=== PATIENT | male | born 1955 | race Caucasian/White ===

== ENCOUNTER → 2024-01-22 12:38 | Outpatient (REF) | payer MEDICARE, OTHER, SELFPAY ==
[2024-01-22 13:26] LABS: % Basophils 0.7 % (0-2); % Eosinophils 1.2 % (0-6); % Immature Granulocytes 0.3 % (0-0.5); % Lymphocytes 24.2 % (20.5-51.1); % Monocytes 9.9 % (1.7-9.3); % Neutrophils 63.7 % (42.2-75.2); Absolute Basophils 0.1 10^3/uL (0-0.2); Absolute Eosinophils 0.1 10^3/uL (0-0.7); Absolute Lymphocytes 1.8 10^3/uL (1.2-3.4); Absolute Monocytes 0.8 10^3/uL (0.1-0.6); Absolute Neutrophils 4.8 10^3/uL (1.4-6.5); Hematocrit 37.3 % (39.0-52.0); Hemoglobin 12.9 g/dL (13.0-18.0); Mean Corp Hgb Conc. 34.6 g/dL (33.0-37.0); Mean Corpuscular Hgb 29.9 pg (27.0-31.0); Mean Corpuscular Volume 86.5 fL (80.0-94.0); Mean Platelet Volume 10.9 fL (7.4-10.4); Nucleated Red Blood Cells % 0 % (-); Platelet Count 190 10^3/uL (130-400); Red Blood Cell Count 4.31 10^6/uL (4.70-6.10); Red Cell Dist. Width 12.3 % (11.5-14.5); White Blood Cell Count 7.6 10^3/uL (4.8-10.8)
[2024-01-22 14:09] LABS: ALT (SGPT) 24 U/L (0-50); AST (SGOT) 33 U/L (17-59); Albumin 4.7 g/dl (3.5-5.0); Alkaline Phosphatase 64 U/L (38-126); Blood Urea Nitrogen 17 mg/dl (9-20); Calcium 9.6 mg/dl (8.4-10.2); Carbon Dioxide 26 mmol/L (22-30); Chloride 101 mmol/L (98-107); Glucose 116 mg/dl (70-99); HDL Cholesterol 46 mg/dl; LDL Cholesterol, Calculated 42 mg/dl; Potassium 4.8 mmol/L (3.5-5.1); Sodium 133 mmol/L (135-145); Total Bilirubin 0.4 mg/dl (0.2-1.3); Total Cholesterol 111 mg/dl (50-199); Total Protein 7.6 g/dl (6.3-8.2); Triglyceride 118 mg/dl (10-149); Very Low Density Lipoprotein 23 mg/dl (0-30); eGFR > 60.00
[2024-01-23 09:23] LABS: Glycohemoglobin (HgbA1c) 6.9 % (4.0-5.6)
== END ==
LOC: REG 12:38
PROVIDERS: ATTENDING PHYSICIAN Internal Medicine
DX: E11.9 Type 2 diabetes mellitus without complications (principal); E78.5 Hyperlipidemia, unspecified; I10 Essential (primary) hypertension; Z79.01 Long term (current) use of anticoagulants; Z00.00 Encounter for general adult medical examination without abnormal findings
CPT/HCPCS: 36415; 80053; 80061; 83036; 85025

== ENCOUNTER → 2024-04-10 12:34 | Outpatient (REF) | payer MEDICARE, OTHER, SELFPAY ==
[2024-04-10 13:18] LABS: % Basophils 0.6 % (0-2); % Eosinophils 1.7 % (0-6); % Immature Granulocytes 0.1 % (0-0.5); % Lymphocytes 18.1 % (20.5-51.1); % Neutrophils 73.5 % (42.2-75.2); Absolute Basophils 0.1 10^3/uL (0-0.2); Absolute Eosinophils 0.1 10^3/uL (0-0.7); Absolute Lymphocytes 1.5 10^3/uL (1.2-3.4); Absolute Monocytes 0.5 10^3/uL (0.1-0.6); Absolute Neutrophils 6.2 10^3/uL (1.4-6.5); Hematocrit 38.7 % (39.0-52.0); Hemoglobin 13.2 g/dL (13.0-18.0); Mean Corp Hgb Conc. 34.1 g/dL (33.0-37.0); Mean Corpuscular Hgb 29.9 pg (27.0-31.0); Mean Corpuscular Volume 87.6 fL (80.0-94.0); Mean Platelet Volume 10.9 fL (7.4-10.4); Nucleated Red Blood Cells % 0 % (-); Platelet Count 220 10^3/uL (130-400); Red Blood Cell Count 4.42 10^6/uL (4.70-6.10); Red Cell Dist. Width 12.6 % (11.5-14.5); White Blood Cell Count 8.5 10^3/uL (4.8-10.8)
[2024-04-10 14:33] LABS: PSA, Total - Screen 0.88 ng/ml (0.0-4.0)
== END ==
LOC: REG 12:34
PROVIDERS: ATTENDING PHYSICIAN Internal Medicine; OTHER PHYSICIAN Internal Medicine Cardiovascular Disease
DX: Z12.5 Encounter for screening for malignant neoplasm of prostate (principal); D64.9 Anemia, unspecified
CPT/HCPCS: 36415; 85025; G0103

== ENCOUNTER → 2024-04-22 13:50 | Outpatient (REF) | payer MEDICARE, OTHER, SELFPAY | LOC: HWRCS 13:50 | PROVIDERS: ATTENDING PHYSICIAN Internal Medicine Cardiovascular Disease; FAMILY PHYSICIAN Internal Medicine | DX: I48.0 Paroxysmal atrial fibrillation (principal); I50.20 Unspecified systolic (congestive) heart failure | CPT/HCPCS: 93306 ==

== ENCOUNTER → 2024-05-25 12:41 | Outpatient (REF) | payer MEDICARE, OTHER, SELFPAY ==
[2024-05-25 14:18] LABS: Glycohemoglobin (HgbA1c) 6.8 % (4.0-5.6)
[2024-05-25 15:25] LABS: ALT (SGPT) 24 U/L (0-50); AST (SGOT) 34 U/L (17-59); Albumin 4.6 g/dl (3.5-5.0); Alkaline Phosphatase 66 U/L (38-126); Direct Bilirubin 0.2 mg/dl (0.0-0.4); Glucose 124 mg/dl (70-99); HDL Cholesterol 50 mg/dl; LDL Cholesterol, Calculated 42 mg/dl; Total Bilirubin 0.6 mg/dl (0.2-1.3); Total Cholesterol 120 mg/dl (50-199); Total Protein 7.2 g/dl (6.3-8.2); Triglyceride 143 mg/dl (10-149); Very Low Density Lipoprotein 28 mg/dl (0-30)
[2024-05-25 15:45] LABS: NT-proBNP 328 pg/ml
== END ==
LOC: REG 12:41
PROVIDERS: ATTENDING PHYSICIAN Internal Medicine Cardiovascular Disease; FAMILY PHYSICIAN Internal Medicine
DX: I25.5 Ischemic cardiomyopathy (principal); I50.20 Unspecified systolic (congestive) heart failure; E11.9 Type 2 diabetes mellitus without complications; I10 Essential (primary) hypertension; E78.5 Hyperlipidemia, unspecified
CPT/HCPCS: 36415; 80061; 80076; 82947; 83036; 83880

== ENCOUNTER 2024-07-29 11:20 | Day surgery (SDC) | payer MEDICARE, OTHER, SELFPAY ==
[2024-07-21 09:34] VITALS: BMI 30.1
[2024-07-29] VITALS (16 sets, daily range): BP systolic 86–158; BP diastolic 57–92
--- NOTE | 2024-07-29 07:48 | W.ICD.CONTRA ---
Post ICD/[employer] CIT[employer]-D
-
History of RI?: Yes
LV Function
Left ventricular function study result?: Ejection Fraction </= 35%
ACEI/ARB/ARNI
Patient already on ACEI/ARB/ARNI: Yes
Beta-William
Patient already on Beta William: Yes
[2024-07-29 12:20] LABS: Glucose - Point of Care 121 mg/dl (70-99)
[2024-07-29 17:50] LABS: Glucose - Point of Care 135 mg/dl (70-99)
--- NOTE | 2024-07-29 17:51 | ITS.CL.ICD ---
Client Support Representative - ICD
Implantable Cardioverter Defibrillator
Procedure Report:
Primary Clinical Cytogeneticist Scientist: Geovanna Bragg M.D.
PROCEDURES:
1. Removal of ICD Generator, 2. ICD Implant
INDICATION FOR PROCEDURE:
1. ICD at [employer]
2. CARDIOMYOPATHY
Initial indication for implant is primary prevention
CHF Class 2-3
Duration of HF > 5 years despite guideline directed medical therapy at maximally tolerated doses
EF 30%
Life expectancy > 1 yr
HISTORY: See office H and P
'Time-out' was called and confirmed. The patient was prepped and draped in sterile fashion. Lidocaine with epi was used for local anesthesia. An incision was made along the previous incision and the device and leads were carefully dissected from
the pocket. Hemostasis was obtained with electrocautery. The leads were from the device header and tested using an external analyzer. The pocket was liberally irrigated with antibiotic solution. Once testing (see below) showed adequate
and stable function, the leads were connected to the generator header and the leads and generator were placed within the pocket. The pocket was closed in the typical fashion.
Tyrex antibiotic pouch was used as he was randomized to this is part of the Wrap-it trial
EXPLANTED ICD: Medtronic [id number], SN [id number]
IMPLANTED ICD: MEDTRONIC [id number], [id number]
EXISTING LEADS:
RA: Medtronic 5076 PJN [id number]
RV: Medtronic 6945 TDA [id number]
RL: Medtronic 4196 PVI [id number]
DEVICE TESTING:
Sensing: RA 2.4 mV, RV 16 mV,
Capture: RA 1 V@ 0.4 ms, RV 1 V@ 0.4 ms, LV 1 V@ 0.4 ms,
Ohms: RA 399 , RV 741 , LV 418
FINAL PROGRAMMING:
Zurdo Pacing: DDDR 50-130 ppm
Tachy parameters:
VF: 188 bpm, ATP while charging, Shock
CONCLUSIONS:
1. Explant of ICD at [employer]
2. Successful implant ICD generator.
3. Normal function of ICD and leads at implant testing.
RECOMMENDATIONS:
1. Observation and consideration for discharge home later today.
2. In-Office wound check in 7 days.
3. In-Office interrogation in 6-8 weeks.
== END 2024-07-29 18:31 | disposition home or self-care (01) ==
LOC: CATH 11:20
PROVIDERS: ATTENDING PHYSICIAN Internal Medicine Cardiovascular Disease; FAMILY PHYSICIAN Internal Medicine; OTHER PHYSICIAN Internal Medicine Cardiovascular Disease
DX: Z45.02 Encounter for adjustment and management of automatic implantable cardiac defibrillator (principal); I25.5 Ischemic cardiomyopathy; I25.2 Old myocardial infarction; E11.9 Type 2 diabetes mellitus without complications; Z79.84 Long term (current) use of oral hypoglycemic drugs; E78.5 Hyperlipidemia, unspecified; I48.0 Paroxysmal atrial fibrillation; I27.20 Pulmonary hypertension, unspecified; Z79.899 Other long term (current) drug therapy; I11.0 Hypertensive heart disease with heart failure; Z79.01 Long term (current) use of anticoagulants; I25.10 Atherosclerotic heart disease of native coronary artery without angina pectoris; E66.9 Obesity, unspecified; Z68.30 Body mass index [BMI] 30.0-30.9, adult; Z79.82 Long term (current) use of aspirin; Z88.2 Allergy status to sulfonamides; Z95.5 Presence of coronary angioplasty implant and graft
CPT/HCPCS: 33264; 82962; C1882

== ENCOUNTER → 2024-09-24 12:08 | Outpatient (REF) | payer MEDICARE, OTHER, SELFPAY ==
[2024-09-24 13:50] LABS: ALT (SGPT) 25 U/L (0-50); AST (SGOT) 35 U/L (17-59); Albumin 4.7 g/dl (3.5-5.0); Alkaline Phosphatase 55 U/L (38-126); Direct Bilirubin 0.1 mg/dl (0.0-0.4); Glucose 119 mg/dl (70-99); HDL Cholesterol 45 mg/dl; LDL Cholesterol, Calculated 42 mg/dl; Total Bilirubin 0.5 mg/dl (0.2-1.3); Total Cholesterol 116 mg/dl (50-199); Total Protein 7.6 g/dl (6.3-8.2); Triglyceride 145 mg/dl (10-149); Very Low Density Lipoprotein 29 mg/dl (0-30)
[2024-09-24 14:34] LABS: Glycohemoglobin (HgbA1c) 6.8 % (4.0-5.6)
== END ==
LOC: REG 12:08
PROVIDERS: ATTENDING PHYSICIAN Internal Medicine
DX: E11.9 Type 2 diabetes mellitus without complications (principal); E78.5 Hyperlipidemia, unspecified; I10 Essential (primary) hypertension
CPT/HCPCS: 36415; 80061; 80076; 82947; 83036

== ENCOUNTER → 2025-01-28 12:53 | Outpatient (REF) | payer MEDICARE, OTHER, SELFPAY ==
[2025-01-28 13:54] LABS: % Basophils 0.9 % (0-2); % Eosinophils 0.9 % (0-6); % Immature Granulocytes 0.2 % (0-0.5); % Lymphocytes 18.7 % (20.5-51.1); % Neutrophils 72.3 % (42.2-75.2); Absolute Basophils 0.1 10^3/uL (0-0.2); Absolute Eosinophils 0.1 10^3/uL (0-0.7); Absolute Lymphocytes 1.7 10^3/uL (1.2-3.4); Absolute Monocytes 0.7 10^3/uL (0.1-0.6); Absolute Neutrophils 6.7 10^3/uL (1.4-6.5); Hematocrit 38.4 % (39.0-52.0); Hemoglobin 12.8 g/dL (13.0-18.0); Mean Corp Hgb Conc. 33.3 g/dL (33.0-37.0); Mean Corpuscular Hgb 28.9 pg (27.0-31.0); Mean Corpuscular Volume 86.7 fL (80.0-94.0); Mean Platelet Volume 10.9 fL (7.4-10.4); Nucleated Red Blood Cells % 0 % (-); Platelet Count 240 10^3/uL (130-400); Red Blood Cell Count 4.43 10^6/uL (4.70-6.10); Red Cell Dist. Width 12.5 % (11.5-14.5); White Blood Cell Count 9.3 10^3/uL (4.8-10.8)
[2025-01-28 14:11] LABS: ALT (SGPT) 25 U/L (0-50); AST (SGOT) 33 U/L (17-59); Albumin 4.9 g/dl (3.5-5.0); Alkaline Phosphatase 73 U/L (38-126); Blood Urea Nitrogen 15 mg/dl (9-20); Calcium 9.8 mg/dl (8.4-10.2); Carbon Dioxide 26 mmol/L (22-30); Chloride 101 mmol/L (98-107); Glucose 132 mg/dl (70-99); HDL Cholesterol 35 mg/dl; LDL Cholesterol, Calculated 33 mg/dl; Potassium 4.7 mmol/L (3.5-5.1); Sodium 138 mmol/L (135-145); Total Bilirubin 0.7 mg/dl (0.2-1.3); Total Cholesterol 104 mg/dl (50-199); Total Protein 7.8 g/dl (6.3-8.2); Triglyceride 180 mg/dl (10-149); Very Low Density Lipoprotein 36 mg/dl (0-30); eGFR > 60.00
[2025-01-28 14:39] LABS: PSA, Total - Screen 0.94 ng/ml (0.0-4.0)
[2025-01-29 12:34] LABS: Iron 98 ug/dl (49-181)
[2025-01-29 12:43] LABS: Percent Saturation 29 % (20-50); Total Iron Binding Capacity 336 ug/dl (261-462)
== END ==
LOC: REG 12:53
PROVIDERS: ATTENDING PHYSICIAN Internal Medicine; OTHER PHYSICIAN Internal Medicine Cardiovascular Disease
DX: E11.9 Type 2 diabetes mellitus without complications (principal); Z00.01 Encounter for general adult medical examination with abnormal findings; E78.5 Hyperlipidemia, unspecified; Z12.5 Encounter for screening for malignant neoplasm of prostate; D64.9 Anemia, unspecified
CPT/HCPCS: 36415; 80053; 80061; 83036; 83540; 83550; 85025; G0103

== ENCOUNTER → 2025-03-16 12:42 | Outpatient (REF) | payer MEDICARE, OTHER, SELFPAY ==
[2025-03-19 09:18] LABS: Lipoprotein a (Lp a) 13 mg/dL (<=29)
== END ==
LOC: REG 12:42
PROVIDERS: ATTENDING PHYSICIAN Internal Medicine Cardiovascular Disease; FAMILY PHYSICIAN Internal Medicine
DX: E78.5 Hyperlipidemia, unspecified (principal)
CPT/HCPCS: 36415; 83695

== ENCOUNTER → 2025-03-19 14:58 | Outpatient (REF) | payer MEDICARE, OTHER, SELFPAY | LOC: HWRCS 14:58 | PROVIDERS: ATTENDING PHYSICIAN Internal Medicine Cardiovascular Disease; FAMILY PHYSICIAN Internal Medicine | DX: I48.0 Paroxysmal atrial fibrillation (principal); I25.10 Atherosclerotic heart disease of native coronary artery without angina pectoris; I50.20 Unspecified systolic (congestive) heart failure | CPT/HCPCS: 93306 ==

== ENCOUNTER 2025-03-25 08:37 | Emergency (ER) | payer MEDICARE, OTHER, SELFPAY ==
[2025-03-25] VITALS (31 sets, daily range): BP systolic 95–165; BP diastolic 56–83
[2025-03-25 08:46] LABS: Glucose - Point of Care 172 mg/dl (70-99)
[2025-03-25 09:24] LABS: % Basophils 0.5 % (0-2); % Immature Granulocytes 0.4 % (0-0.5); % Lymphocytes 19.6 % (20.5-51.1); % Monocytes 8.1 % (1.7-9.3); % Neutrophils 70.4 % (42.2-75.2); Absolute Basophils 0.1 10^3/uL (0-0.2); Absolute Eosinophils 0.1 10^3/uL (0-0.7); Absolute Lymphocytes 1.9 10^3/uL (1.2-3.4); Absolute Monocytes 0.8 10^3/uL (0.1-0.6); Absolute Neutrophils 6.7 10^3/uL (1.4-6.5); Hematocrit 40.2 % (39.0-52.0); Hemoglobin 13.8 g/dL (13.0-18.0); Mean Corp Hgb Conc. 34.3 g/dL (33.0-37.0); Mean Corpuscular Hgb 29.4 pg (27.0-31.0); Mean Corpuscular Volume 85.7 fL (80.0-94.0); Mean Platelet Volume 10.8 fL (7.4-10.4); Nucleated Red Blood Cells % 0 % (-); Platelet Count 199 10^3/uL (130-400); Red Blood Cell Count 4.69 10^6/uL (4.70-6.10); Red Cell Dist. Width 12.7 % (11.5-14.5); White Blood Cell Count 9.6 10^3/uL (4.8-10.8)
--- NOTE | 2025-03-25 09:32 | ED.GENMED ---
History of Present Illness
<Loren Perez DO - Last Filed: 03/25/25 13:47>
General
Chief Complaint: Fainting/Passed Out
Time Seen by Provider: 03/25/25 08:39
History of Present Illness
History of Present Illness:
69-year-old male with history of CAD status post stenting, AICD for ischemic cardiomyopathy, hyperlipidemia, A-fib on Xarelto, hypertension presenting to the emergency department for a syncopal episode. Patient reports this morning he went to go to
the bathroom and started to feel uneasy and anxious. He subsequently passed out. His went to get him, got him into the hallway and he had a additional episode where he fell back, struck his head. He does have that he has been stressed, did
not sleep very well last night. Denies preceding chest pain or difficulty breathing and denies any present breathing. He follows with Dr. Bragg from cardiology and had his AICD replaced 1 year ago. Denies fever. Denies abdominal pain or
vomiting. Patient has upcoming ablation scheduled for April for his A-fib. Denies additional acute medical complaints
Phy Exam
<Loren Perez DO - Last Filed: 03/25/25 13:47>
Physical Exam
Physical Exam:
General: Well-appearing, no clinical signs of dehydration, nontoxic and in no acute distress
HEENT: protecting airway
Neck: appears supple
CV: Tachycardic, irregular rhythm, no evidence of cyanosis
Resp: No accessory muscle use, no increased work of breathing, lungs clear to auscultation bilaterally
Abd: Soft and non-distended, no tenderness to palpation
Extremities: No deformities, no swelling, no erythema, pulses and sensation intact
Neuro: alert, no focal neurologic deficit
: deferred
Rectal: deferred
Psych: Normal affect
Skin: Intact
Course
<Loren Perez DO - Last Filed: 03/25/25 13:47>
Orders/Labs/Results
Orders:
Orders
03/25/25 08:44
Electrocardiogram (*1) Urgent
Reason for Study: Syncope
EKG- Treatment ONCE
03/25/25 09:11
Chest [CR Chest - 2 Views ] Urgent
Comment:
Reason For Exam: chest pain
03/25/25 09:17
Basic Metabolic Panel Urgent
Complete Blood Count/With Diff Urgent
NT-proBNP Urgent
Troponin I Urgent
03/25/25 09:36
CT Head W/o Iv Contrast Urgent
Comment:
Reason For Exam: syncope, headstrike
Metoprolol [Lopressor] 150 mg PO ONCE ONE
03/25/25 09:41
Metoprolol [Lopressor] 5 mg IV NOW STA
03/25/25 10:17
Electrocardiogram (*1) Urgent
Reason for Study: Palpitations
EKG- Treatment ONCE
Metoprolol [Lopressor] 100 mg PO NOW STA
03/25/25 10:37
EKG- Treatment ONCE
03/25/25 12:00
Electrocardiogram (*1) Urgent
Reason for Study: Palpitations
03/25/25 12:21
Troponin I Urgent
03/25/25 12:56
EKG- Treatment ONCE
03/25/25 12:57
Electrocardiogram (*1) Urgent
Reason for Study: Atrial Fibrillation
03/25/25 13:04
EKG- Treatment ONCE
03/25/25 15:00
Electrocardiogram (*1) Urgent
Reason for Study: Other
Other Reason for Exam: syncope
03/25/25 15:23
Troponin I Urgent
Abnormal Lab Results
03/25/25 03/25/25
08:45 09:17
RBC 4.69 L 10^6/uL
(4.70-6.10)
MPV 10.8 H fL
(7.4-10.4)
Absolute Neuts (auto) 6.7 H 10^3/uL
(1.4-6.5)
Absolute Monos (auto) 0.8 H 10^3/uL
(0.1-0.6)
Lymphocytes % 19.6 L %
(20.5-51.1)
Carbon Dioxide 21 L mmol/L
(22-30)
Glucose 179 H mg/dl
(70-99)
POC Glucose 172 H mg/dl
(70-99)
03/25/25 09:17
03/25/25 09:17
Vital Signs
Initial and Last Documented VS:
Initial Vital Signs
Temp Pulse Resp BP Pulse Ox
98.2 F 104 18 165/81 100
03/25/25 08:39 03/25/25 08:39 03/25/25 08:39 03/25/25 08:39 03/25/25 08:39
Last Documented Vital Signs
Temp Pulse Resp BP Pulse Ox
98.2 F 80 20 109/72 98
03/25/25 08:39 03/25/25 13:01 03/25/25 13:01 03/25/25 13:01 03/25/25 13:01
<Fredrick Arciniega MD - Last Filed: 03/25/25 16:17>
Orders/Labs/Results
Orders:
Orders
03/25/25 08:44
Electrocardiogram (*1) Urgent
Reason for Study: Syncope
EKG- Treatment ONCE
03/25/25 09:11
Chest [CR Chest - 2 Views ] Urgent
Comment:
Reason For Exam: chest pain
03/25/25 09:17
Basic Metabolic Panel Urgent
Complete Blood Count/With Diff Urgent
NT-proBNP Urgent
Troponin I Urgent
03/25/25 09:36
CT Head W/o Iv Contrast Urgent
Comment:
Reason For Exam: syncope, headstrike
Metoprolol [Lopressor] 150 mg PO ONCE ONE
03/25/25 09:41
Metoprolol [Lopressor] 5 mg IV NOW STA
03/25/25 10:17
Electrocardiogram (*1) Urgent
Reason for Study: Palpitations
EKG- Treatment ONCE
Metoprolol [Lopressor] 100 mg PO NOW STA
03/25/25 10:37
EKG- Treatment ONCE
03/25/25 12:00
Electrocardiogram (*1) Urgent
Reason for Study: Palpitations
03/25/25 12:21
Troponin I Urgent
03/25/25 12:56
EKG- Treatment ONCE
03/25/25 12:57
Electrocardiogram (*1) Urgent
Reason for Study: Atrial Fibrillation
03/25/25 13:04
EKG- Treatment ONCE
03/25/25 15:00
Electrocardiogram (*1) Urgent
Reason for Study: Other
Other Reason for Exam: syncope
03/25/25 15:23
Troponin I Urgent
Abnormal Lab Results
03/25/25 03/25/25
08:45 09:17
RBC 4.69 L 10^6/uL
(4.70-6.10)
MPV 10.8 H fL
(7.4-10.4)
Absolute Neuts (auto) 6.7 H 10^3/uL
(1.4-6.5)
Absolute Monos (auto) 0.8 H 10^3/uL
(0.1-0.6)
Lymphocytes % 19.6 L %
(20.5-51.1)
Carbon Dioxide 21 L mmol/L
(22-30)
Glucose 179 H mg/dl
(70-99)
POC Glucose 172 H mg/dl
(70-99)
03/25/25 09:17
03/25/25 09:17
Vital Signs
Initial and Last Documented VS:
Initial Vital Signs
Temp Pulse Resp BP Pulse Ox
98.2 F 104 18 165/81 100
03/25/25 08:39 03/25/25 08:39 03/25/25 08:39 03/25/25 08:39 03/25/25 08:39
Last Documented Vital Signs
Temp Pulse Resp BP Pulse Ox
98.2 F 80 20 109/72 98
03/25/25 08:39 03/25/25 13:01 03/25/25 13:01 03/25/25 13:01 03/25/25 13:01
<Loren Perez, DO - Last Filed: 03/25/25 13:47>
MDM/Problems Addressed
MDM/Problems Addressed:
69-year-old male with history of CAD status post stenting, AICD for ischemic cardiomyopathy, hyperlipidemia, A-fib on Xarelto, hypertension presenting for syncope. Vital signs are significant for tachycardia and hypertension.
On exam patient is resting comfortably, asymptomatic. Patient is tachycardic, appears to be possibly consistent with atrial fibrillation which is known to him. He did not take his metoprolol this morning. Will administer metoprolol for rate
improvement. Concerning syncopal episode in a patient with known cardiac history and AICD. Will interrogate device. No significant signs of head trauma, however does appear that he struck his head after second episode. Will obtain CT brain
imaging. Will obtain electrolyte panel, troponin, BNP, no history of heart failure. Will continue closely monitor
10:30 -workup thus far is reassuring. Interrogation of device without any events. IV metoprolol administered, with conversion to sinus rhythm. Will administer home metoprolol oral dosage. Pending CT imaging of head. Will repeat troponin
13:00 -second troponin is still within normal limits, however positive delta change. In discussion with cardiology, will get third troponin.
<Loren Perez DO - Last Filed: 03/25/25 13:47>
*Pulse Oximetry
SaO2: 99
Oxygen Mode of Delivery: Room air
Patient hypoxic: no
*EKG
Interpreted by ED Provider?: Yes
EKG Intrepretation Date: 03/25/25
EKG Intrepretation Time: 09:43
Interpretation: abnormal
Comparison EKG: changes noted
Heart Rate: 129
Rate: tachycardiac
Rhythm: a-fib
[place]: left axis deviation
QRS Pattern: wide non-specific
Ischemia: non-specific ST changes
*Critical Care Note
Total Time (30-74mins, 75-104mins- exclusive of procedures): Not Applicable
<Fredrick Arciniega MD - Last Filed: 03/25/25 16:17>
Update Note
Update Note:
1615.... Repeat troponin 0.030. Minuscule trending up. However remains negative. Results sent to cardiology who felt patient could be discharged to follow-up
ED Attending Note
<Loren Perez DO - Last Filed: 03/25/25 13:47>
-
Portions of this chart may have been created with voice recognition software.� Occasional wrong word or��sound alike� substitutions may have occurred due to the inherent limitations of voice recognition software.
Discharge Plan
Departure
Patient with high blood pressure during this ER visit?: No
Condition: Good
Discharge Problem:
Syncope, Atrial fibrillation
Instructions: Syncope (Fainting) (DC), Atrial fibrillation - Discharge instructions
Prescriptions:
No Action
metformin 500 MG tablet
1,000 mg PO BID
metoprolol succinate 50 MG tablet extended release 24 hr
150 mg PO DAILY
aspirin 81 MG tablet,delayed release (DR/EC)
81 mg PO DAILY
nitroglycerin 0.4 MG tablet, sublingual
0.4 mg sublingual [id number] PRN (Reason: chest pain)
Patient Comments:
never has taken
Rx Instructions:
never had to use it
rosuvastatin [Crestor] 40 MG tablet
40 mg PO DAILY
Xarelto 20 mg Tablet
20 mg PO DAILY
Entresto 24-26 mg Tablet
1 tab PO BID
vitamin B complex Tablet Extended Release
1 tab PO DAILY
cranberry fruit 400 mg Capsule
400 mg PO DAILY
magnesium 200 mg Tablet
400 mg PO DAILY
Januvia 50 mg Tablet
50 mg PO DAILY
Referrals:
Thaddeus Sánchez MD [Family Provider, Internal Medicine]
Geovanna Bragg MD [Active, Cardiology]
Activity Restrictions/Additional Instructions:
You were seen in the emergency department for a syncopal episode
You were found to have reassuring laboratory analysis, interrogation of your AICD, chest x-ray imaging, CT of your brain. Your heart rate was initially elevated which improved with metoprolol. Please continue to take your medications as directed
and follow-up closely with your fire captain
Please follow-up closely with your primary care physician.
Return to the emergency department for any worsening of your symptoms, or any development of chest pain, difficulty breathing, abdominal pain with persistent vomiting and inability to tolerate food or liquid by mouth (concern for dehydration),
weakness, headache or confusion, fever greater than 100.4, or any additional symptoms that are concerning to you.
Thank you for choosing [facility].
Interventions
Interventions:
*Risk Screen - Suicide Last Done: 03/25/25 08:39
*General Assessment Last Done: 03/25/25 08:39
*Neglect/Abuse Screening Last Done: 03/25/25 08:39
*ED- Fall Risk Assessment Last Done: 03/25/25 09:13
*ED COVID-19 Vaccine History Last Done: 03/25/25 09:13
ED- Cardiac Assessment Last Done: 03/25/25 09:13
ED- Neurological Assessment Last Done: 03/25/25 09:13
Discharge Date and Time
Print Language: TUNISIAN
[2025-03-25] MEDS: LOPRESSOR 5 MG IV (09:49)
[2025-03-25 10:08] LABS: NT-proBNP 510 pg/ml; Troponin I < 0.012 ng/ml
[2025-03-25 10:11] LABS: Blood Urea Nitrogen 12 mg/dl (9-20); Calcium 9.7 mg/dl (8.4-10.2); Carbon Dioxide 21 mmol/L (22-30); Chloride 105 mmol/L (98-107); Glucose 179 mg/dl (70-99); Sodium 137 mmol/L (135-145); eGFR > 60.00
[2025-03-25] MEDS: LOPRESSOR 100 MG PO (11:14)
[2025-03-25 12:53] LABS: Troponin I 0.025 ng/ml
== END 2025-03-25 16:40 | disposition home or self-care (01) ==
LOC: EMR 08:37
PROVIDERS: EMERGENCY PHYSICIAN Student in an Organized Health Care Education/Training Program; FAMILY PHYSICIAN Internal Medicine
DX: R55 Syncope and collapse (principal); I48.91 Unspecified atrial fibrillation; I25.10 Atherosclerotic heart disease of native coronary artery without angina pectoris; E78.00 Pure hypercholesterolemia, unspecified; I10 Essential (primary) hypertension; I25.5 Ischemic cardiomyopathy; I44.7 Left bundle-branch block, unspecified; Z79.01 Long term (current) use of anticoagulants; Z95.5 Presence of coronary angioplasty implant and graft; Z95.810 Presence of automatic (implantable) cardiac defibrillator
CPT/HCPCS: 99284; 96374; 70450; 71046; 80048; 82962; 83880; 84484; 85025; 93005

== ENCOUNTER → 2025-04-01 12:27 | Outpatient (REF) | payer MEDICARE, OTHER, SELFPAY ==
[2025-04-01 13:30] LABS: Hematocrit 36.8 % (39.0-52.0); Hemoglobin 12.3 g/dL (13.0-18.0); Mean Corp Hgb Conc. 33.4 g/dL (33.0-37.0); Mean Corpuscular Volume 87.0 fL (80.0-94.0); Nucleated Red Blood Cells % 0 % (-); Platelet Count 228 10^3/uL (130-400); Red Cell Dist. Width 12.6 % (11.5-14.5)
[2025-04-01 13:36] LABS: INR 1.36; PT 17.3 Sec (11.4-14.6)
[2025-04-01 13:42] LABS: ALT (SGPT) 19 U/L (0-50); AST (SGOT) 28 U/L (17-59); Albumin 4.7 g/dl (3.5-5.0); Alkaline Phosphatase 55 U/L (38-126); Blood Urea Nitrogen 16 mg/dl (9-20); Calcium 9.5 mg/dl (8.4-10.2); Carbon Dioxide 26 mmol/L (22-30); Chloride 101 mmol/L (98-107); Glucose 193 mg/dl (70-99); Magnesium 2.2 mg/dl (1.6-2.3); Potassium 4.9 mmol/L (3.5-5.1); Sodium 136 mmol/L (135-145); Total Protein 7.6 g/dl (6.3-8.2); eGFR > 60.00
== END ==
LOC: SDSPAT 12:27
PROVIDERS: ATTENDING PHYSICIAN Internal Medicine Cardiovascular Disease; FAMILY PHYSICIAN Internal Medicine; OTHER PHYSICIAN Internal Medicine Cardiovascular Disease
DX: I48.0 Paroxysmal atrial fibrillation (principal)
CPT/HCPCS: 36415; 80053; 83735; 85025; 85610; 86850; 86900; 86901

== ENCOUNTER 2025-04-09 07:10 | Day surgery (SDC) | payer MEDICARE, OTHER, SELFPAY ==
[2025-04-09 08:00] LABS: Glucose - Point of Care 158 mg/dl (70-99)
== END 2025-04-09 09:45 | disposition home or self-care (01) ==
LOC: CATH 07:10
PROVIDERS: ATTENDING PHYSICIAN Internal Medicine Cardiovascular Disease; FAMILY PHYSICIAN Internal Medicine; REFERRING PHYSICIAN Internal Medicine Cardiovascular Disease
DX: I48.0 Paroxysmal atrial fibrillation (principal); I08.3 Combined rheumatic disorders of mitral, aortic and tricuspid valves; I08.8 Other rheumatic multiple valve diseases; E11.9 Type 2 diabetes mellitus without complications; I10 Essential (primary) hypertension; I25.10 Atherosclerotic heart disease of native coronary artery without angina pectoris; Z79.01 Long term (current) use of anticoagulants; Z79.82 Long term (current) use of aspirin; Z79.84 Long term (current) use of oral hypoglycemic drugs; Z79.899 Other long term (current) drug therapy
CPT/HCPCS: 93312; 93320; 93325; 82962

== ENCOUNTER 2025-04-12 10:22 | Day surgery (SDC) | payer MEDICARE, OTHER, SELFPAY ==
[2025-04-01 12:56] VITALS: BMI 29.6
[2025-04-12] VITALS (10 sets, daily range): BP systolic 90–135; BP diastolic 47–76
--- NOTE | 2025-04-12 07:22 | ITS.CL.ABL ---
Pre Kindergarten Teacher - Ablation
Ablation
Procedure Report:
ELECTROPHYSIOLOGIC STUDY AND POSSIBLE ABLATION
DATE: April 12, 2025
Primary Care Provider: Dr. Dante Sánchez
Primary Projection Printer: Dr Geovanna Bragg
INDICATION:
Symptomatic Atrial Fibrillation.
Paroxysmal
HISTORY: See H and P.
Symptomatic AF, poorly controlled with attempted medical therapy.
He has known coronary artery disease he has history of MS with LAD intervention/Stent in 1999.
He has �infarct-related cardiomyopathy, with heart failure with reduced ejection fraction and no congestive symptoms.� He has paroxysmal atrial fibrillation and biventricular ICD.� He has cardiovascular risk factors.� The burden is of his atrial
fibrillation continues to increase. Biventricular pacing has decreased.� At recent interrogation: Afib burden 29%, BiV pacing reduced at 78%
Echo 03/19/2025: EF 30 to 35%, moderate to severe inferior wall hypokinesis, anterior septal akinesis, stage II diastolic dysfunction, mild to moderate MR, mild TR PAP 45 mmHg. Compared to echo 03/20[address] no significant change[address]
Preprocedure CT scan raise the possibility of a left atrial appendage thrombus. He therefore underwent transesophageal echocardiogram April 09, 2025 which demonstrated no left atrial appendage thrombus.
HAS-BLED: 1
Age
CHADSVASc: 5
CHF, NYHA Class II, LVEF 30-35%
HTN
Age
DM
Vascular Dz: prior MS
PRESENTING RHYTHM: SR
HISTORY: See H and P.
Symptomatic AF, poorly controlled with attempted medical therapy.
ANTICOAGULATION: Rivaroxaban 20 mg daily
'TIME-OUT': called and confirmed.
SEDATION/ANESTHESIA: provided via the anesthesia department using general anesthesia.
PROCEDURE:
Interrogation of the Medtronic DEVELOPMENT GEOLOGIST-D/multichamber ICD finds normal function of the ICD and lead system. VT/VF detection programmed off.
Ultrasound Guidance with real-time visualization of needle insertion and vessel patency performed by nc for femoral venous Vascular Access.
Under real-time US guidance, the needle was advanced with negative pressure into the vein. The needle was seen entering the vessel lumen with a good return of dark red flow, the syringe was removed, non-pulsatile, dark red blood low was noted and
the wire was passed without difficulty, then the needle was removed. US confirmed the wire was in the vein, not going into an artery,
Images were taken and saved for the patient's permanent record. Imaging findings typical femoral venous anatomy. Direct visualization of needle puncture into the femoral vein was observed and recorded.
A decapolar CS catheter was placed within the CS for mapping and pacing.
The intracardiac ultrasound catheter was positioned in the RA for continuous intracardiac ultrasound imaging.
Heparin bolus and infusion to target ACT at 300 -350 seconds was administered. Transseptal puncture was performed. This entailed advancing a sheath with dilator into the superior vena cava and withdrawing both (monitoring intracardiac ultrasound,
fluoroscopy and tip pressure) with the tip oriented toward the atrial septum. The fossa ovalis was engaged (indicated by sudden displacement of the sheath tip as well as tenting of the fossa seen on intracardiac ultrasound).
Transseptal puncture was performed. Left atrial catheter position was confirmed by echocardiographic imaging, pressure monitoring (LA mean pressure 18 mm Hg) and fluoroscopy. The sheath was advanced over the dilator and positioned in the left
atrium.
The [employer] multipolar mapping/ablation Sphere-9 catheter was positioned through the transseptal sheath for high density mapping.
Geometry and voltage mapping was performed using the [employer] mapping system for three-dimensional electroanatomical mapping.
Catheter positioning was guided and confirmed using both I.C.E. and fluoroscopy.
Ablation strategy included PVI as well as mapping for extra PV contributors to atrial fibrillation which would also be targeted if present.
High density electroanatomical three-dimensional mapping demonstrated LSPV, LIPV, RSPV, RIPV.
After accomplishing pulmonary venous isolation, mapping identified additional areas likely to be extra PV contributors to atrial fibrillation. These areas demonstrated patchy low voltage as well as complex fractionated electrograms. These areas can
be sites for the formation of rotors which can drive and maintain atrial fibrillation. These areas are known to be significant contributors to initiation and perpetuation of atrial fibrillation.
Additional energy applications/additional ablation sets targeted extra PV contributors to atrial fibrillation.
Targets for additional PFA ablation included:
LA posterior wall targeted with pulsed electric field energy isolating the posterior wall of the left atrium
After ablation of the posterior wall, additional targets remained:
LA inferior floor
These areas were ablated using pulsed electric field energy eliminating the extra PV contributors to atrial fibrillation.
Post ablation mapping finds entrance and exit block at each of the pulmonary veins (LSPV, LIPV, RSPV, RIPV), the LA posterior wall and at the additional lines at the Inferior/floor of the LA rendering the sites no longer able to contribute to
atrial fibrillation.
Programmed electrostimulation including burst atrial pacing as well the delivery of decremental extrastimuli down to atrial effective refractory period and no sustained arrhythmias could be induced.
I.C.E. :
Pre-Ablation Post-Ablation
LVEF: 55 % 55 %
WMA: none none
Pericardial effusion: none none
At the end of the procedure once all temporary catheters were removed from the heart, fluoroscopic appearance of the defibrillator and lead system is unchanged.
Interrogation of the [employer] ICD finds normal function. Atrial impedance 380, RV impedance 703 and LV impedance 418 ohms. Capture threshold is 0.75 V at 0.4 ms in the 8, 0.875 V at 0.4 ms at the RV. Amplitude in the atrium is 2.4
and in the RV 20 millivolts.
I reprogrammed the device to DDD 60�130. I reprogrammed tachycardia detection, VF phone at 320 ms which is 188 bpm, AT AF therapies I also programmed on at 171 bpm with burst plus then ramp, cardioversion off.
COMPLICATIONS:
none
SUMMARY:
- Mapping and ablation to isolate the PVs resulting in electrical isolation of the pulmonary veins
- Additional AF ablation sets X 2 after PVI (LA posterior wall, Inf/floor of the LA posterior wall) resulting in elimination of the targeted extra PV contributors to atrial fibrillation.
- Interrogation and reprogramming multichamber ICD
- 3-D Electroanatomical Mapping
- Intracardiac Ultrasound
- Ultrasound guidance for vascular access
Post ablation, I discussed today's findings and results with the patient's , Yuliet.
RECOMMENDATIONS:
- Observe in monitored bed.
- Maintain oral anticoagulation.
- Office visit with me is scheduled for July 22, 2025
- Continue cardiovascular care with Dr Geovanna Bragg
Copy to:
Dr. Dante Sánchez
Dr. Geovanna Bragg
[2025-04-12 11:07] LABS: Glucose - Point of Care 192 mg/dl (70-99)
[2025-04-12 12:19] LABS: ACT-LR - POC 302 Seconds (116-155)
[2025-04-12 12:38] LABS: ACT-LR - POC 310 Seconds (116-155)
[2025-04-12 12:45] LABS: Glucose - Point of Care 160 mg/dl (70-99)
[2025-04-12 12:57] LABS: ACT-LR - POC 311 Seconds (116-155)
[2025-04-12 14:23] LABS: Glucose - Point of Care 172 mg/dl (70-99)
--- NOTE | 2025-04-12 17:02 | W.PN.UPDATE ---
Update Note
Progress Note Update
Pt seen post PFA. Right groin site with vascade closure, no ht/bleeding. OOB ambulating, urinating without difficulty. Post EKG Vpaced w/underlying SR, 60s, no acute changes. Resume xarelto tonight at usual time, continue metoprolol as before.
Followup at [facility] as scheduled. Home today if groin site/tele remain stable.
== END 2025-04-12 15:56 | disposition home or self-care (01) ==
LOC: CATH 10:22
PROVIDERS: ATTENDING PHYSICIAN Internal Medicine Cardiovascular Disease; FAMILY PHYSICIAN Internal Medicine; OTHER PHYSICIAN Internal Medicine Cardiovascular Disease
DX: I48.0 Paroxysmal atrial fibrillation (principal); Z95.5 Presence of coronary angioplasty implant and graft; I25.2 Old myocardial infarction; I25.10 Atherosclerotic heart disease of native coronary artery without angina pectoris; I11.0 Hypertensive heart disease with heart failure; E11.9 Type 2 diabetes mellitus without complications; Z79.01 Long term (current) use of anticoagulants; Z79.82 Long term (current) use of aspirin; Z79.84 Long term (current) use of oral hypoglycemic drugs; Z79.899 Other long term (current) drug therapy; I50.20 Unspecified systolic (congestive) heart failure
CPT/HCPCS: C1733; C1769; C1766; C1730; C1892; 82962; 85347; 86900; 86901; 93005; 93656; 93657; C1760

== ENCOUNTER → 2025-04-16 13:04 | Outpatient (REF) | payer MEDICARE, OTHER, SELFPAY ==
[2025-04-16 13:53] LABS: Hematocrit 36.4 % (39.0-52.0); Hemoglobin 12.2 g/dL (13.0-18.0); Mean Corp Hgb Conc. 33.5 g/dL (33.0-37.0); Mean Corpuscular Volume 85.2 fL (80.0-94.0); Nucleated Red Blood Cells % 0 % (-); Platelet Count 208 10^3/uL (130-400); Red Cell Dist. Width 13.0 % (11.5-14.5)
[2025-04-16 14:41] LABS: Urine Character Clear (Clear)
[2025-04-16 15:17] LABS: Urine Red Blood Cell 0-2 /HPF (0-2); Urine White Cell 0-2 /HPF (0-5)
== END ==
LOC: REG 13:04
PROVIDERS: ATTENDING PHYSICIAN Internal Medicine
DX: D64.9 Anemia, unspecified (principal)
CPT/HCPCS: 36415; 81003; 81015; 85025

== ENCOUNTER → 2025-06-03 12:57 | Outpatient (REF) | payer MEDICARE, OTHER, SELFPAY ==
[2025-06-03 14:49] LABS: ALT (SGPT) 27 U/L (0-50); AST (SGOT) 31 U/L (17-59); Albumin 4.8 g/dl (3.5-5.0); Alkaline Phosphatase 84 U/L (38-126); Glucose 113 mg/dl (70-99); HDL Cholesterol 48 mg/dl; LDL Cholesterol, Calculated 42 mg/dl; Total Protein 7.6 g/dl (6.3-8.2); Very Low Density Lipoprotein 28 mg/dl (0-30)
[2025-06-04 09:49] LABS: Glycohemoglobin (HgbA1c) 7.0 % (4.0-5.6)
== END ==
LOC: REG 12:57
PROVIDERS: ATTENDING PHYSICIAN Internal Medicine
DX: E11.9 Type 2 diabetes mellitus without complications (principal); E78.5 Hyperlipidemia, unspecified; I10 Essential (primary) hypertension
CPT/HCPCS: 36415; 80061; 80076; 82947; 83036